=== PATIENT | female | born 1975 | race Caucasian/White ===

== ENCOUNTER 2018-12-14 00:21 | Emergency (ER) | payer OTHER ==
[~2018-12-14] VITALS: Ht 160 cm; Wt 70.1 kg
--- NOTE | 2018-12-14 01:00 | PHYS DOC ---
Past History Past Medical History: Seizure, Other Additional Past Medical Histor: occipital neuralgia Past Surgical History: Tonsillectomy Additional Past Surgical Histo: breast augmentation-2006; endometrial ablation- 2009 Alcohol Use: Occasionally Drug Use: None Adult General Chief Complaint Chief Complaint: BACK PAIN - NO INJURY HPI HPI 43-year-old female presents with low back pain and lower abdominal pain. Patient just drove here from [facility]. She thought she does have a sore back from all the driving. The pain has continued to get worse. She is also had some urinary urgency and change in vaginal discharge. The patient was sexually active prior to leaving [place]. She is concerned about STD. She denies fever or chills. She has no other complaints. She denies as she has had an ablation and has not had a menstrual period in 8 years. Review of Systems Review of Systems Constitutional: Denies fever or chills [] Eyes: Denies change in visual acuity, redness, or eye pain [] HENT: Denies nasal congestion or sore throat [] Respiratory: Denies cough or shortness of breath [] Cardiovascular: No additional information not addressed in HPI [] GI: Denies abdominal pain, nausea, vomiting, bloody stools or diarrhea [] : Urinary urgency, vaginal discharge[] Musculoskeletal: Denies back pain or joint pain [] Integument: Denies rash or skin lesions [] Neurologic: Denies headache, focal weakness or sensory changes [] Endocrine: Denies polyuria or polydipsia [] All other systems were reviewed and found to be within normal limits, except as documented in this note. Allergies Allergies Allergies Coded Allergies Type Severity Reaction Last Updated Verified carbamazepine Allergy Unknown 12/14/18 Yes metoclopramide Allergy Unknown 12/14/18 Yes prochlorperazine Allergy Unknown 12/14/18 Yes promethazine Allergy Unknown 12/14/18 Yes Physical Exam Physical Exam Constitutional: Well developed, well nourished, no acute distress, non-toxic appearance. [] HENT: Normocephalic, atraumatic, bilateral external ears normal, oropharynx moist, no oral exudates, nose normal. [] Eyes: PERRLA, EOMI, conjunctiva normal, no discharge. [] Neck: Normal range of motion, no tenderness, supple, no stridor. [] Cardiovascular:Heart rate regular rhythm, no murmur [] Lungs & Thorax: Bilateral breath sounds clear to auscultation [] Abdomen: Bowel sounds normal, soft, no tenderness, no masses, no pulsatile masses. [] Skin: Warm, dry, no erythema, no rash. [] Back: Mild tenderness over right sacroiliac joint. [] Extremities: No tenderness, no cyanosis, no clubbing, ROM intact, no edema. [] Neurologic: Alert and oriented X 3, normal motor function, normal sensory function, no focal deficits noted. [] Psychologic: Affect normal, judgement normal, mood normal. : normal external genitalia, shaved pubic hair, thick whitish to yellow discharge, no pain with exam, no cervical motion tenderness, no palpable ovaries. [] Current Patient Data Vital Signs Vital Signs Date Time Temp Pulse Resp B/P (MAP) Pulse Ox O2 Delivery O2 Flow Rate FiO2 12/14/18 00:30 97.9 74 20 96 Room Air EKG EKG [] Radiology/Procedures Radiology/Procedures [] Course & Med Decision Making Course & Med Decision Making Pertinent Labs and Imaging studies reviewed. (See chart for details) The patient has elected for STD treatment with azithromycin and Rocephin. The patient's wet prep is suggestive of bacterial vaginosis. I will treat her with 2 g of Flagyl. She is stable for discharge at this time. [] Dragon Disclaimer Dragon Disclaimer This electronic medical record was generated, in whole or in part, using a voice recognition dictation system. Departure Departure: Impression: Primary Impression: Bacterial vaginosis Additional Impression: Concern about STD in female without diagnosis Disposition: 01 HOME, SELF-CARE Condition: STABLE Referrals: PCP,UNKNOWN (PCP) Patient Instructions: Bacterial Vaginosis, [id number] Problem Qualifiers NEDA FISHER DO Dec 14, 2018 01:00
[2018-12-14 01:49] LABS: BILIRUBIN,URINE NEG (NEG); CLARITY,URINE HAZY; COLOR,URINE ORANGE
[2018-12-14 01:50] LABS: BACTERIA,URINE FEW /HPF (0-FEW); RBC,URINE OCC /HPF (0-2); SQUAMOUS EPITHELIAL CELL,UR FEW /LPF
[2018-12-14] MEDS ORDERED: AZITHROMYCIN 250 MG TABLET. PO ONE (02:00)
[2018-12-14] MEDS ORDERED: cefTRIAXone IM 250 MG VIAL IM ONE (02:00)
[2018-12-14 02:47] VITALS: BP 152/90
[2018-12-14] MEDS ORDERED: metroNIDAZOLE 500 MG TABLET PO ONE (03:00)
[2018-12-15 17:13] LABS: CHLAMYDIA PROBE Negative (Negative)
== END 2018-12-14 02:48 | disposition home or self-care (01) ==
LOC: ER 00:21
DX: N76.0 Acute vaginitis (principal); Z20.2 Contact with and (suspected) exposure to infections with a predominantly sexual mode of transmission; B96.89 Other specified bacterial agents as the cause of diseases classified elsewhere; Z88.8 Allergy status to other drugs, medicaments and biological substances
CPT/HCPCS: 36415; 81001; 87086; 87491; 87591; 96372; 99284; J0456; J0696; Q0111